=== PATIENT | male | born 1965 | race Caucasian/White ===

== ENCOUNTER 2016-12-03 23:03 | Emergency (ER) | payer OTHER ==
[~2016-12-03] VITALS: Ht 185.4 cm; Wt 96.5 kg
[2016-12-03 23:37] VITALS: Ht 185.4 cm; Wt 96.5 kg
[2016-12-04 03:42] VITALS: BP 161/96; PULSE 66; RESP 14; TEMP 98.4
[2016-12-04 04:29] LABS: ADD SCAN DIFF NO
[2016-12-04 04:42] LABS: BASOPHILS % 0.7 % (0.0-2.0); EOSINOPHILS # 0.3 10^3/ul (0.0-0.5); EOSINOPHILS % 5.2 % (0.0-7.0); HEMATOCRIT 44.9 % (42.0-52.0); HEMOGLOBIN 16.1 g/dl (14.0-18.0); INR 0.93; LYMPHOCYTES # 1.2 10^3/ul (0.8-2.9); LYMPHOCYTES % 20.1 % (15.0-51.0); MEAN CORPUSCULAR HEMOGLOBIN 33.3 pg (29.0-33.0); MEAN CORPUSCULAR HGB CONC 35.9 g/dl (32.0-37.0); MONOCYTE # 0.7 10^3/ul (0.3-0.9); MONOCYTES % 10.6 % (0.0-11.0); NEUTROPHIL # 3.9 10^3/ul (1.6-7.5); NEUTROPHILS % 63.2 % (39.0-77.0); PARTIAL THROMBOPLASTIN TIME 26.2 Sec (25.0-35.0); PLATELET COUNT 200 10^3/UL (140-415); PROTIME 12.5 Sec (12.2-14.2); RED BLOOD COUNT 4.83 10^6/ul (4.70-6.10); RED CELL DISTRIBUTION WIDTH 12.9 % (11.5-14.5); WHITE BLOOD COUNT 6.1 10^3/ul (4.8-10.8)
[2016-12-04 04:43] LABS: CHLORIDE 104 mmol/L (97-110); POTASSIUM 3.9 mmol/L (3.5-5.1); SODIUM 143 mmol/L (135-144)
[2016-12-04 04:46] LABS: ANION GAP 15 (8-16); BLOOD UREA NITROGEN 9 mg/dl (7-20); CARBON DIOXIDE 28 mmol/L (21-31); CREATININE 0.75 mg/dl (0.61-1.24); GLUCOSE 100 mg/dl (70-220)
[2016-12-04 04:47] LABS: CALCIUM 9.2 mg/dl (8.4-10.2)
[2016-12-04 05:01] LABS: TROPONIN-I < 0.012 ng/ml (0.00-0.12)
--- NOTE | 2016-12-04 05:02 | RADRPT ---
PROCEDURE: CHEST CLINICAL INDICATION: 51-year-old male with chest pain. TECHNIQUE: AP semi-upright view of the chest was obtained portably on two radiographs. The imag es were reviewed on a PACS workstation. COMPARISON: None. FINDINGS: The cardiomediastinal silhouette has a normal appearance. There is no evidence for an infiltrate. T here is no evidence for congestive heart failure. There is no evidence for pneumothorax. The osseous structures are intact. IMPRESSION: No evidence for active cardiopulmonary disease. .Kp Cruz MD, MD Date Time Electronically viewed and signed by .Kp Cruz MD, on 12/04/2016 05:01 .Robert/
--- NOTE | 2016-12-04 05:10 | ERD ---
ER Documentation Chief Complaint Date/Time DATE: 12/04/16 TIME: 05:08 Chief Complaint Jaw pain radiating to the neck. with hx to TMJ HPI This 51-year-old male presents to the emergency room for evaluation of pain in his tooth, and bilateral jaws. The patient states that he had a root canal recently. He states that he had noticed some bleeding from the gums. He denies any chest pain or palpitations and came to the emergency room today for evaluation. Patient is denying any nausea, diaphoresis or vomiting. ROS All systems reviewed and are negative except as per history of present illness. Allergies Allergies: Coded Allergies: No Known Allergy (Unverified , 12/03/16) PMhx/Soc History of Surgery: Yes (BACK) Anesthesia Reaction: No Hx Neurological Disorder: No Hx Respiratory Disorders: No Hx Cardiac Disorders: Yes (HTN) Hx Psychiatric Problems: No Hx Miscellaneous Medical Probl: No Hx Alcohol Use: Yes Hx Substance Use: Yes Hx Tobacco Use: Yes (CIGAR) Smoking Status: Former smoker Physical Exam Vitals Vital Signs Date Time Temp Pulse Resp B/P Pulse Ox O2 Delivery O2 Flow Rate FiO2 12/04/16 03:42 98.4 66 14 161/96 99 Room Air 12/04/16 03:42 Nasal Cannula 2 12/03/16 23:37 98.1 73 18 170/101 99 Physical Exam INITIAL VITAL SIGNS: Reviewed by me GENERAL: The patient is well developed and appropriate for usual state of health in no apparent distress HEENT: Poor dentition, multiple dental caries, silver film noted over gingiva of the left lower portion of the mouth. No dental abscess noted pupils equal, round, and reactive to light. EOMI. There is no scleral icterus. NECK: C-spine is soft and supple, there is no meningismus. There is no cervical lymphadenopathy. LUNGS: Clear to auscultation bilaterally. There are no rales, wheezes or rhonchi. HEART: Regular rate and rhythm, no murmurs, clicks, rubs or gallops. ABDOMEN: Soft, non-tender, non-distended. There are bowel sounds in all four quadrants. No rebound or guarding. EXTREMITIES: There is no peripheral cyanosis or edema. No focal swelling or erythema. NEUROLOGICAL: The patient moves all four extremities with 5/5 strength. Cranial nerves II - XII are intact. Normal gait. Alert and oriented SKIN: There is no apparent rash or petechiae. HEME/LYMPHATIC: There is no evidence of excessive bruising or lymphedema. PSYCHIATRIC: The patient does not appear anxious or depressed. Result Diagram: 12/04/1639912/04/160 Results 24 hrs Laboratory Tests Test 12/04/16 04:00 Activated Partial Thromboplast Time 26.2Sec Anion Gap 15 Basophils # 0.010^3/ul Basophils % 0.7% Blood Urea Nitrogen 9mg/dl Calcium Level 9.2mg/dl Carbon Dioxide Level 28mmol/L Chloride Level 104mmol/L Creatinine 0.75mg/dl Eosinophils # 0.310^3/ul Eosinophils % 5.2% Glucose Level 100mg/dl Hematocrit 44.9% Hemoglobin 16.1g/dl INR International Normalized Ratio 0.93 Lymphocytes # 1.210^3/ul Lymphocytes % 20.1% Mean Corpuscular Hemoglobin 33.3pg Mean Corpuscular Hemoglobin Concent 35.9g/dl Mean Corpuscular Volume 93.0fl Mean Platelet Volume 9.0fl Monocytes # 0.710^3/ul Monocytes % 10.6% Neutrophils # 3.910^3/ul Neutrophils % 63.2% Nucleated Red Blood Cells # 0.010^3/ul Nucleated Red Blood Cells % 0.0/100WBC Platelet Count 23517^3/UL Potassium Level 3.9mmol/L Prothrombin Time 12.5Sec Prothrombin Time Ratio 1.0 Red Blood Count 4.8310^6/ul Red Cell Distribution Width 12.9% Sodium Level 143mmol/L Troponin I < 0.012ng/ml White Blood Count 6.110^3/ul Procedures/MDM EKG: Rate/Rhythm: [Normal Sinus Rhythm] QRS, ST, T-waves: [No changes consistent w/ acute ischemia] Impression: [No evidence of ischemia or arrhythmia] Chest X-ray 1V Interpreted by me: Soft Tissue: No acute abnormalities Bones: No acute abnormalities Mediastinum/Cardiac Silhouette/Lungs: [No acute abnormalities] This 41-year-old male presents to the emergency room for evaluation of jaw pain and head pain. I evaluated this patient. I did obtain an EKG which is nonischemic. Troponin is normal. Chest x-ray is also clear. The patient did have silver film over his gingiva which could be the beginnings of acute necrotizing ulcerative gingivitis. The patient has no elevations in his white blood cell count. The patient will be discharged at this time with a prescription for Flagyl. The patient was advised to return immediately to ER if he develops any worsening symptoms and he verbalized understanding. Departure Diagnosis: Primary Impression: ANUG (acute necrotizing ulcerative gingivitis) Additional Impression: Jaw pain Condition: Stable DANIEL VIGIL DO Dec 04, 2016 05:10
[2016-12-04] MEDS ORDERED: METR500T PO (05:11)
== END 2016-12-04 05:20 | disposition home or self-care (01) ==
LOC: E/R 23:03
DX: A69.1 Other Vincent's infections (principal); I10 Essential (primary) hypertension; R07.9 Chest pain, unspecified; Z87.891 Personal history of nicotine dependence
CPT/HCPCS: 36415; 71010; 80048; 84484; 85025; 85610; 85730; Z7502; 93005